=== PATIENT | female | born 1960 | race African-American/Black ===

== ENCOUNTER 2025-04-04 18:31 | Emergency (ER) | payer MEDICARE, OTHER ==
[2025-04-04] MEDS ORDERED: Famotidine 20 MG TAB ONE (19:18)
[2025-04-04] MEDS ORDERED: predniSONE 20 MG TAB ONE (19:18)
== END 2025-04-04 19:27 | disposition home or self-care (01) ==
LOC: ERS 18:31
DX: T78.1XXA Other adverse food reactions, not elsewhere classified, initial encounter (principal); I10 Essential (primary) hypertension; E11.9 Type 2 diabetes mellitus without complications
CPT/HCPCS: 99282; J7512